=== PATIENT | male | born 1960 | race African-American/Black ===

== ENCOUNTER 2017-06-14 23:18 | Emergency (ER) | payer SELFPAY ==
[~2017-06-14] VITALS: Ht 182.9 cm; Wt 77.1 kg
[2017-06-14 23:36] VITALS: BP 135/85
[2017-06-14] MEDS ORDERED: NORCO 5-325 TA1 EACH ORAL (23:50)
[2017-06-14] MEDS ORDERED: AMOXICILLIN500 MG ORAL (23:50)
[2017-06-14 23:56] VITALS: BP 135/85
--- NOTE | 2017-06-15 04:19 | Emergency Room Report ---
History of Present Illness General Chief Complaint: Toothache Source: Patient Present Illness HPI 57-year-old male presents ED complaining of tooth pain. States pain started 2 days ago but is getting progressively worse. Pain is a 10 out of 10, throbbing , nonradiating. Denies fevers or chills. No other aggravating or relieving factors. Denies any other associated symptoms Allergies: Coded Allergies: No Known Allergies (Unverified , 06/14/17) Patient History Past Medical History: DM Past Surgical History: none Pertinent Family History: none Social History: Denies: alcohol use, drug use, smoking Immunizations: UTD Reviewed Nursing Documentation: PMH: Agreed, PSxH: Agreed Nursing Documentation-PMH Hx Diabetes: Yes - TYPE2 Review of Systems All Other Systems: negative except mentioned in HPI Physical Exam Vital Signs Date Time Temp Pulse Resp B/P Pulse Ox O2 Delivery O2 Flow Rate FiO2 06/14/17 23:35 98.4 102 18 135/85 95 Room Air Sp02 EP Interpretation: reviewed, normal General Appearance: no apparent distress, alert, GCS 15, non-toxic Head: normocephalic Eyes: bilateral eye PERRL, bilateral eye normal inspection ENT: normal pharynx, TMs + canals normal, other - pain in R lower molar. cavity noted Neck: full range of motion, supple/symm/no masses Respiratory: chest non-tender, lungs clear, normal breath sounds, speaking full sentences Cardiovascular #1: normal inspection Gastrointestinal: normal inspection Rectal: deferred Genitourinary: no CVA tenderness Musculoskeletal: normal inspection Neurologic: alert, oriented x3, responsive, motor strength/tone normal, sensory intact, speech normal Psychiatric: normal inspection Skin: normal inspection Lymphatic: normal inspection Medical Decision Making Diagnostic Impression: Primary Impression: Toothache ER Course 57-year-old male presents ED complaining of tooth pain. Cracked tooth, dental abscess, cavity Patient placed on stretcher. After initial history, physical exam reveals a middle aged male in mild distress. The tooth in question shows decay but there is no pulp exposed. No surrounding abscess. No induration or swelling. Diagnosis- toothache Stable and discharged to home prescription for [place] and amoxicillin. Instructed to see dentist as a walk-in this week. Return to ED if symptoms recur or worse Last Vital Signs Date Time Temp Pulse Resp B/P Pulse Ox O2 Delivery O2 Flow Rate FiO2 06/14/17 23:56 98.4 18 135/85 95 Room Air 06/14/17 23:35 102 Status: improved Disposition: HOME, SELF-CARE Condition: Stable Scripts Amoxicillin* (AMOXIL*) 500 Mg Capsule 500 MG ORAL THREE TIMES A DAY, #21 CAP Prov: GILMA CORNEJO M.D. 06/14/17 Hydrocodone Bit/Acetaminophen 5-325* (NORCO 5-325*) 1 Each Tablet 1 TAB ORAL Q6H Y for For Pain, #10 TAB 0 Refills Prov: GILMA CORNEJO M.D. 06/14/17 Referrals: NON PHYSICIAN (PCP) Patient Instructions: Dental Pain GILMA CORNEJO M.D. Jun 15, 2017 04:19
== END 2017-06-14 23:56 | disposition home or self-care (01) ==
LOC: EMR 23:47
DX: K08.89 Other specified disorders of teeth and supporting structures (principal); E11.9 Type 2 diabetes mellitus without complications
CPT/HCPCS: 99284